=== PATIENT | male | born 1980 | race Hispanic/Latino ===

== ENCOUNTER 2024-04-20 18:11 | Emergency (ER) | payer MEDICARE, SELFPAY ==
[2024-04-20 19:15] LABS: Alcohol 416.9 mg/dL (Less than 10)
[2024-04-20 19:17] LABS: #Basophils 0.1 thou/uL (0.0-0.2); #Eosinphils 0.1 thou/uL (0.0-0.7); #Lymphocytes 1.6 thou/uL (1.20-3.40); #Monocytes 0.3 thou/uL (0.11-0.59); #Neutrophils 1.8 thou/uL (1.40-6.50); %Eosinophils 1.5 % (0.0-10.0); %Lymphocytes 42.3 % (21.0-51.0); %Monocytes 7.7 % (0.0-10.0); %Neutrophils 46.6 % (42.0-75.0); Hematocrit 42.9 % (42.0-52.0); Hemoglobin 14.1 g/dL (14.0-18.0); Mean Corpuscular HGB CONC 32.9 g/dL (32.0-36.0); Mean Corpuscular Hemoglobin 30.1 pg (27.0-31.0); Mean Corpuscular Volume 91.6 fl (78.0-98.0); Mean Platelet Volume 7.9 fL (7.4-10.4); Platelet Count 127 10x3/uL (130-400); RBC Distribution Width 12.2 % (11.5-14.5); Red Blood Cell (RBC) Count 4.68 mill/uL (4.70-6.10); White Blood Cell (WBC) Count 3.8 10x3/uL (4.8-10.8)
[2024-04-20 19:18] LABS: Chloride 104 mmol/L (98-107); Potassium 3.4 mmol/L (3.5-5.1); Sodium 143 mmol/L (136-145)
[2024-04-20 19:23] LABS: Bilirubin Negative (Negative); Blood, Urine Negative (Negative); Clarity Clear (Clear); Glucose, Urine (Dipstick) Negative (Negative); Ketone, Urine Negative (Negative); Leukocyte Negative (Negative); Nitrite Negative (Negative); Protein, Urine (Dipstick) Negative (Neg-Trace); Urobilinogen 0.2 mg/dL (Less than 2)
[2024-04-20 19:24] LABS: Specific Gravity, Urine 1.002 (1.002-1.036)
[2024-04-20 19:29] LABS: Acetaminophen Less than 10 mcg/mL (Less than 10); Salicylate Less than 8.0 mg/dL (Less than 8.0)
[2024-04-20 19:32] LABS: Amphetamine Not Detected (NotDetected); Barbiturates Screen Not Detected (NotDetected); Benzodiazepine Screen Not Detected (NotDetected); Cocaine Metabolite Screen Not Detected (NotDetected); Methadone Not Detected (NotDetected); Methamphetamine Not Detected (NotDetected); Opiate Screen Not Detected (NotDetected); Oxycodone Screen Not Detected (NotDetected); Phencyclidine (PCP) Not Detected (NotDetected); THC/Cannabinoid Screen Not Detected (NotDetected); Tricyclic Screen Not Detected (NotDetected)
[2024-04-20 19:33] LABS: ALT (SGPT) 75 U/L (8-55); AST (SGOT) 110 U/L (5-34); Albumin 4.1 g/dL (3.5-5.0); Alkaline Phosphatase 79 U/L (40-110); Anion Gap 18 mmol/L (10-20); BUN (Urea Nitrogen) Less than 4 mg/dL (8.9-20.6); Bilirubin, Total 0.5 mg/dL (0.2-1.2); Calc. Creatinine Clearance 0 mL/min (70-130); Calcium 8.7 mg/dL (7.8-10.44); Carbon Dioxide 24 mmol/L (22-29); Estimated GFR 114; Globulin 4.2 g/dL (2.4-3.5); Glucose 135 mg/dL (70-105); Protein, Total 8.3 g/dL (6.0-8.3)
[2024-04-20 19:43] LABS: Troponin I Less than 0.010 ng/mL (< 0.028)
[2024-04-20] MEDS ORDERED: Pantoprazole 40 MG VIAL ONE (19:59)
[2024-04-20] MEDS ORDERED: Sodium Chloride 0.9% 1,000 ML ONE (19:59)
[2024-04-20] MEDS ORDERED: Ondansetron PF 4 MG/2 ML Vial ONE (19:59)
[2024-04-20] MEDS ORDERED: Acetaminophen 500 MG TAB ONE (19:59)
[2024-04-20] MEDS ORDERED: Dextrose 5 %-0.45 % NaCl 1,000 ML ONE (20:12)
[2024-04-20] MEDS ORDERED: Folic Acid 5 MG/ML MDV ONE (20:12)
[2024-04-20] MEDS ORDERED: Multivit, Adult Inj 10 ML VIAL ONE (20:12)
[2024-04-20] MEDS ORDERED: Thiamine HCl 200 MG/2 ML VIAL ONE (20:12)
== END 2024-04-20 18:21 | disposition home or self-care (01) ==
LOC: NAV ERS 18:11
DX: F10.129 Alcohol abuse with intoxication, unspecified (principal); Y90.8 Blood alcohol level of 240 mg/100 ml or more
CPT/HCPCS: 71045; 80306; 80307 ×2; 81001; 84484; 93005; 96365; 96366; 96375; 99284; J2405; J2470; J3411; J7030; J7042; 36415; 80053; 84443; 85025

== ENCOUNTER 2024-05-21 11:36 | Emergency (ER) | payer MEDICARE, SELFPAY ==
[2024-05-21 12:04] LABS: #Basophils 0.1 thou/uL (0.0-0.2); #Lymphocytes 1.5 thou/uL (1.20-3.40); #Monocytes 0.3 thou/uL (0.11-0.59); #Neutrophils 1.6 thou/uL (1.40-6.50); %Basophils 1.9 % (0.0-1.0); %Eosinophils 0.5 % (0.0-10.0); %Lymphocytes 43.1 % (21.0-51.0); %Monocytes 7.5 % (0.0-10.0); Hemoglobin 15.5 g/dL (14.0-18.0); Mean Corpuscular HGB CONC 33.6 g/dL (32.0-36.0); Mean Corpuscular Hemoglobin 30.9 pg (27.0-31.0); Mean Platelet Volume 10.3 fL (7.4-10.4); Platelet Count 152 10x3/uL (130-400); RBC Distribution Width 11.5 % (11.5-14.5); White Blood Cell (WBC) Count 3.5 10x3/uL (4.8-10.8)
[2024-05-21 12:18] LABS: ALT (SGPT) 56 U/L (8-55); AST (SGOT) 67 U/L (5-34); Albumin 4.4 g/dL (3.5-5.0); Alkaline Phosphatase 75 U/L (40-110); Anion Gap 21 mmol/L (10-20); BUN (Urea Nitrogen) Less than 4 mg/dL (8.9-20.6); Bilirubin, Total 0.6 mg/dL (0.2-1.2); Calc. Creatinine Clearance 0 mL/min (70-130); Carbon Dioxide 25 mmol/L (22-29); Chloride 98 mmol/L (98-107); Estimated GFR 114; Globulin 3.9 g/dL (2.4-3.5); Glucose 122 mg/dL (70-105); Lipase 99 U/L (8-78); Potassium 3.6 mmol/L (3.5-5.1); Protein, Total 8.3 g/dL (6.0-8.3); Sodium 140 mmol/L (136-145)
[2024-05-21 12:19] LABS: Acetaminophen Less than 10 mcg/mL (Less than 10); Alcohol 346.8 mg/dL (Less than 10); Salicylate Less than 8.0 mg/dL (Less than 8.0); Troponin I Less than 0.010 ng/mL (< 0.028)
[2024-05-21] MEDS ORDERED: diphenhydrAMINE 50 MG/ML VIAL ONE (15:44)
[2024-05-21] MEDS ORDERED: Sodium Chloride 0.9% 1,000 ML ONE (15:44)
[2024-05-21] MEDS ORDERED: Metoclopramide HCl 10 MG (2 mL) VIAL ONE (15:44)
[2024-05-21 16:01] LABS: Troponin I Less than 0.010 ng/mL (< 0.028)
[2024-05-21 16:03] LABS: Amphetamine Not Detected (NotDetected); Barbiturates Screen Not Detected (NotDetected); Benzodiazepine Screen Not Detected (NotDetected); Cocaine Metabolite Screen Not Detected (NotDetected); Methadone Not Detected (NotDetected); Methamphetamine Not Detected (NotDetected); Opiate Screen Not Detected (NotDetected); Oxycodone Screen Not Detected (NotDetected); Phencyclidine (PCP) Not Detected (NotDetected); THC/Cannabinoid Screen Not Detected (NotDetected); Tricyclic Screen Not Detected (NotDetected)
== END 2024-05-21 18:05 | disposition home or self-care (01) ==
LOC: NAV ERS 11:36
DX: R07.89 Other chest pain (principal); F10.129 Alcohol abuse with intoxication, unspecified; Y90.8 Blood alcohol level of 240 mg/100 ml or more
CPT/HCPCS: 70450; 71045; 72125; 80053; 80306; 80307; 83690; 84484; 85025; 93005; 96374; 96375; J1200; J2765; J7030

== ENCOUNTER 2024-07-02 16:03 | Emergency (ER) | payer SELFPAY ==
[2024-07-02 16:35] LABS: #Basophils 0.1 thou/uL (0.0-0.2); #Lymphocytes 1.2 thou/uL (1.20-3.40); #Monocytes 0.4 thou/uL (0.11-0.59); #Neutrophils 7.3 thou/uL (1.40-6.50); %Basophils 0.6 % (0.0-1.0); %Neutrophils 81.4 % (42.0-75.0); Hematocrit 44.6 % (42.0-52.0); Hemoglobin 15.2 g/dL (14.0-18.0); Mean Corpuscular HGB CONC 34.2 g/dL (32.0-36.0); Mean Corpuscular Hemoglobin 30.8 pg (27.0-31.0); Mean Corpuscular Volume 90.2 fl (78.0-98.0); Mean Platelet Volume 10.5 fL (7.4-10.4); Platelet Count 137 10x3/uL (130-400); RBC Distribution Width 10.9 % (11.5-14.5); Red Blood Cell (RBC) Count 4.95 mill/uL (4.70-6.10)
[2024-07-02] MEDS ORDERED: Ondansetron PF 4 MG/2 ML Vial ONE (16:38)
[2024-07-02] MEDS ORDERED: Sodium Chloride 0.9% 1,000 ML ONE (16:39)
[2024-07-02 16:53] LABS: Clarity Clear (Clear); Glucose, Urine (Dipstick) Negative (Negative); Leukocyte Negative (Negative); Nitrite Negative (Negative); Protein, Urine (Dipstick) Trace mg/dL (Neg-Trace)
[2024-07-02 16:54] LABS: Bilirubin Negative (Negative); Blood, Urine Trace (Negative); CAUTI Indications for Culture Alt mental st,lethar; Ketone, Urine Negative (Negative); RBC/HPF 0-3 HPF (0-3); Urobilinogen 0.2 mg/dL (Less than 2); WBC/HPF None Seen HPF (0-3)
[2024-07-02 16:55] LABS: Amphetamine Not Detected (NotDetected); Barbiturates Screen Not Detected (NotDetected); Benzodiazepine Screen Not Detected (NotDetected); Cocaine Metabolite Screen Not Detected (NotDetected); Methadone Not Detected (NotDetected); Methamphetamine Not Detected (NotDetected); Opiate Screen Not Detected (NotDetected); Oxycodone Screen Not Detected (NotDetected); Phencyclidine (PCP) Not Detected (NotDetected); Squamous Epithelial 0-3 HPF (0-3); THC/Cannabinoid Screen Not Detected (NotDetected); Tricyclic Screen Not Detected (NotDetected); Urine Culture Reflex No No
[2024-07-02 16:58] LABS: ALT (SGPT) 79 U/L (8-55); AST (SGOT) 74 U/L (5-34); Albumin 4.5 g/dL (3.5-5.0); Alkaline Phosphatase 81 U/L (40-110); Anion Gap 24 mmol/L (10-20); BUN (Urea Nitrogen) Less than 4 mg/dL (8.9-20.6); Bilirubin, Total 0.9 mg/dL (0.2-1.2); Calc. Creatinine Clearance 0 mL/min (70-130); Carbon Dioxide 24 mmol/L (22-29); Chloride 90 mmol/L (98-107); Estimated GFR 111; Glucose 126 mg/dL (70-105); Potassium 3.6 mmol/L (3.5-5.1); Protein, Total 8.5 g/dL (6.0-8.3); Sodium 134 mmol/L (136-145)
[2024-07-02 16:59] LABS: Acetaminophen Less than 10 mcg/mL (Less than 10); Alcohol 363.3 mg/dL (Less than 10); Lipase 76 U/L (8-78); Salicylate Less than 8.0 mg/dL (Less than 8.0)
[2024-07-02] MEDS ORDERED: Metoclopramide HCl 10 MG (2 mL) VIAL ONE (17:48)
[2024-07-02] MEDS ORDERED: Acetaminophen 650 MG Suppository ONE (19:00)
[2024-07-02] MEDS ORDERED: Promethazine HCl 25 MG/ML VIAL ONE (20:05)
[2024-07-02] MEDS ORDERED: Pantoprazole 40 MG VIAL ONE (20:22)
[2024-07-02] MEDS ORDERED: Famotidine/PF 20 mg/2ml Vial ONE (20:22)
== END 2024-07-02 20:43 | disposition left against medical advice (07) ==
LOC: NAV ERS 16:03
DX: R45.851 Suicidal ideations (principal); F10.129 Alcohol abuse with intoxication, unspecified; Y90.8 Blood alcohol level of 240 mg/100 ml or more
CPT/HCPCS: 80053; 80306; 80307; 81001; 83690; 85025; 93005; 96361; 96374; 96375; J2405; J2470; J2550; J2765; J3490; J7030

== ENCOUNTER 2024-07-18 07:24 | Emergency (ER) | payer SELFPAY ==
[2024-07-18 08:04] LABS: #Basophils 0.1 thou/uL (0.0-0.2); #Lymphocytes 0.9 thou/uL (1.20-3.40); #Monocytes 0.3 thou/uL (0.11-0.59); #Neutrophils 3.2 thou/uL (1.40-6.50); %Eosinophils 0.3 % (0.0-10.0); %Lymphocytes 19.3 % (21.0-51.0); %Neutrophils 71.3 % (42.0-75.0); Hematocrit 44.8 % (42.0-52.0); Hemoglobin 15.2 g/dL (14.0-18.0); Mean Corpuscular HGB CONC 33.9 g/dL (32.0-36.0); Mean Corpuscular Volume 91.5 fl (78.0-98.0); Mean Platelet Volume 7.7 fL (7.4-10.4); Platelet Count 340 10x3/uL (130-400); RBC Distribution Width 12.2 % (11.5-14.5); White Blood Cell (WBC) Count 4.5 10x3/uL (4.8-10.8)
[2024-07-18 08:18] LABS: ALT (SGPT) 106 U/L (8-55); AST (SGOT) 89 U/L (5-34); Acetaminophen Less than 10 mcg/mL (Less than 10); Albumin 4.2 g/dL (3.5-5.0); Alcohol 299.3 mg/dL (Less than 10); Alkaline Phosphatase 73 U/L (40-110); Anion Gap 18 mmol/L (10-20); BUN (Urea Nitrogen) 4 mg/dL (8.9-20.6); Bilirubin, Total 0.5 mg/dL (0.2-1.2); Calc. Creatinine Clearance 0 mL/min (70-130); Calcium 8.3 mg/dL (7.8-10.44); Carbon Dioxide 29 mmol/L (22-29); Chloride 98 mmol/L (98-107); Estimated GFR 114; Globulin 4.5 g/dL (2.4-3.5); Glucose 112 mg/dL (70-105); Potassium 3.6 mmol/L (3.5-5.1); Protein, Total 8.7 g/dL (6.0-8.3); Salicylate Less than 8.0 mg/dL (Less than 8.0); Sodium 141 mmol/L (136-145)
[2024-07-18 08:20] LABS: Troponin I Less than 0.010 ng/mL (< 0.028)
[2024-07-18 08:26] LABS: Bilirubin Negative (Negative); Blood, Urine Negative (Negative); Clarity Clear (Clear); Glucose, Urine (Dipstick) Negative (Negative); Ketone, Urine Negative (Negative); Leukocyte Negative (Negative); Nitrite Negative (Negative); Protein, Urine (Dipstick) Negative (Neg-Trace); Urobilinogen 0.2 mg/dL (Less than 2)
[2024-07-18 08:32] LABS: Amphetamine Not Detected (NotDetected); Barbiturates Screen Not Detected (NotDetected); Benzodiazepine Screen Not Detected (NotDetected); Cocaine Metabolite Screen Not Detected (NotDetected); Methadone Not Detected (NotDetected); Methamphetamine Not Detected (NotDetected); Opiate Screen Not Detected (NotDetected); Oxycodone Screen Not Detected (NotDetected); Phencyclidine (PCP) Not Detected (NotDetected); THC/Cannabinoid Screen Not Detected (NotDetected); Tricyclic Screen Not Detected (NotDetected)
[2024-07-18] MEDS ORDERED: Thiamine HCl 200 MG/2 ML VIAL ONE (09:11)
[2024-07-18] MEDS ORDERED: Multivit, Adult Inj 10 ML VIAL ONE (09:12)
[2024-07-18] MEDS ORDERED: Folic Acid 5 MG/ML MDV ONE (09:12)
[2024-07-18] MEDS ORDERED: Pantoprazole 40 MG VIAL ONE (09:12)
[2024-07-18] MEDS ORDERED: Dextrose 5 %-0.45 % NaCl 1,000 ML ONE (09:12)
[2024-07-18] MEDS ORDERED: Ondansetron PF 4 MG/2 ML Vial ONE (12:49)
[2024-07-18 12:50] LABS: Troponin I Less than 0.010 ng/mL (< 0.028)
[2024-07-18] MEDS ORDERED: Metoclopramide HCl 10 MG (2 mL) VIAL ONE ×2 (13:50→17:25)
[2024-07-18] MEDS ORDERED: diphenhydrAMINE 50 MG/ML VIAL ONE (13:50)
[2024-07-18] MEDS ORDERED: Sodium Chloride 0.9% 100 ML ONE ×2 (13:50→17:26)
[2024-07-18] MEDS ORDERED: Diazepam 10 MG/2 ML SYRINGE ONE (17:26)
[2024-07-18] MEDS ORDERED: Acetaminophen 500 MG TAB ONE (19:58)
== END 2024-07-18 20:35 | disposition home or self-care (01) ==
LOC: NAV ERS 07:24
DX: F10.129 Alcohol abuse with intoxication, unspecified (principal); R07.9 Chest pain, unspecified; R51.9 Headache, unspecified; Y90.3 Blood alcohol level of 60-79 mg/100 ml
CPT/HCPCS: 36415; 80053; 80306; 80307; 81001; 84484; 85025; 93005; 94760; 96361; 96365; 96366; 96367; 96375; J1200; J2405; J2470; J2765; J3360; J3411; J7042

== ENCOUNTER 2024-08-19 12:48 | Emergency (ER) | payer SELFPAY ==
[2024-08-19] MEDS ORDERED: Ondansetron PF 4 MG/2 ML Vial ONE (13:58)
[2024-08-19] MEDS ORDERED: Sodium Chloride 0.9% 1,000 ML ONE (13:59)
[2024-08-19] MEDS ORDERED: Thiamine HCl 200 MG/2 ML VIAL ONE (13:59)
[2024-08-19 14:38] LABS: Bilirubin Negative (Negative); Blood, Urine Negative (Negative); Clarity Clear (Clear); Glucose, Urine (Dipstick) Negative (Negative); Ketone, Urine Negative (Negative); Leukocyte Negative (Negative); Nitrite Negative (Negative); Protein, Urine (Dipstick) Negative (Neg-Trace); Urobilinogen 0.2 mg/dL (Less than 2); pH, Urine 6.5 (5.0-9.0)
[2024-08-19 14:47] LABS: Amphetamine Not Detected (NotDetected); Barbiturates Screen Not Detected (NotDetected); Benzodiazepine Screen Not Detected (NotDetected); Cocaine Metabolite Screen Not Detected (NotDetected); Methadone Not Detected (NotDetected); Methamphetamine Not Detected (NotDetected); Opiate Screen Not Detected (NotDetected); Oxycodone Screen Not Detected (NotDetected); Phencyclidine (PCP) Not Detected (NotDetected); THC/Cannabinoid Screen Not Detected (NotDetected); Tricyclic Screen Not Detected (NotDetected)
[2024-08-19 14:52] LABS: Specific Gravity, Urine 1.003 (1.002-1.036)
[2024-08-19 14:54] LABS: ALT (SGPT) 78 U/L (8-55); AST (SGOT) 148 U/L (5-34); Albumin 3.5 g/dL (3.5-5.0); Alkaline Phosphatase 128 U/L (40-110); Anion Gap 16 mmol/L (10-20); BUN (Urea Nitrogen) 5 mg/dL (8.9-20.6); Bilirubin, Total 1.4 mg/dL (0.2-1.2); Calc. Creatinine Clearance 0 mL/min (70-130); Calcium 7.9 mg/dL (7.8-10.44); Carbon Dioxide 25 mmol/L (22-29); Chloride 100 mmol/L (98-107); Estimated GFR 120; Globulin 3.8 g/dL (2.4-3.5); Glucose 100 mg/dL (70-105); Potassium 2.8 mmol/L (3.5-5.1); Protein, Total 7.3 g/dL (6.0-8.3); Sodium 138 mmol/L (136-145)
[2024-08-19 14:55] LABS: Acetaminophen Less than 10 mcg/mL (Less than 10); Alcohol 369.8 mg/dL (Less than 10); Salicylate Less than 8.0 mg/dL (Less than 8.0)
[2024-08-19 15:01] LABS: Troponin I Less than 0.010 ng/mL (< 0.028)
[2024-08-19] MEDS ORDERED: Potassium Chloride 10 MEQ/100 ML PREMIX BAG ONE (15:02)
[2024-08-19 15:31] LABS: #Basophils 0.1 thou/uL (0.0-0.2); #Lymphocytes 1.3 thou/uL (1.20-3.40); #Monocytes 0.4 thou/uL (0.11-0.59); #Neutrophils 3.5 thou/uL (1.40-6.50); %Basophils 1.2 % (0.0-1.0); %Lymphocytes 24.3 % (21.0-51.0); %Monocytes 7.4 % (0.0-10.0); %Neutrophils 67.1 % (42.0-75.0); Hematocrit 38.9 % (42.0-52.0); Hemoglobin 13.4 g/dL (14.0-18.0); Mean Corpuscular HGB CONC 34.3 g/dL (32.0-36.0); Mean Corpuscular Hemoglobin 30.2 pg (27.0-31.0); Mean Corpuscular Volume 87.8 fl (78.0-98.0); Mean Platelet Volume 12.1 fL (7.4-10.4); Platelet Count 88 10x3/uL (130-400); RBC Distribution Width 11.2 % (11.5-14.5); Red Blood Cell (RBC) Count 4.43 mill/uL (4.70-6.10); White Blood Cell (WBC) Count 5.2 10x3/uL (4.8-10.8)
[2024-08-19 15:34] LABS: Bacteria/HPF 1+ HPF (None Seen); CAUTI Indications for Culture Dysuria,urgency,freq; RBC/HPF 0-3 HPF (0-3); Squamous Epithelial None Seen HPF (0-3); WBC/HPF None Seen HPF (0-3)
[2024-08-19 15:36] LABS: Urine Culture Reflex No No
[2024-08-19 17:15] LABS: Platelet Adequacy Comment Appears Decreased
[2024-08-19 17:20] LABS: Anisocytosis SLIGHT = 6-15 cells (100X) (0-5/hpf); Poikilocytosis SLIGHT = 6-15 cells (100X) (0-5/hpf)
[2024-08-19 19:51] LABS: Troponin I Less than 0.010 ng/mL (< 0.028)
[2024-08-20] MEDS ORDERED: Diazepam 10 MG/2 ML SYRINGE ONE (08:02)
[2024-08-20] MEDS ORDERED: Mag-Al Plus 1200/1200/120 MG (30 mL) UDCUP ONE (08:03)
[2024-08-20] MEDS ORDERED: Pantoprazole 40 MG VIAL ONE (08:03)
[2024-08-20] MEDS ORDERED: Lidocaine Viscous Sol 2% 15 ml UD Cup ONE (08:07)
== END 2024-08-20 09:15 | disposition home or self-care (01) ==
LOC: NAV ERS 12:48
DX: F10.129 Alcohol abuse with intoxication, unspecified (principal); E87.6 Hypokalemia; Y90.8 Blood alcohol level of 240 mg/100 ml or more
CPT/HCPCS: 36415; 71045; 80053; 80306; 80307; 81001; 84484; 85025; 96365; 96367; 96375; J2405; J2470; J3360; J3411; J3480; J7030